=== PATIENT | female | born 1945 | race Hispanic/Latino ===

== ENCOUNTER 2016-10-25 07:59 | Day surgery (SDC) | payer MEDICARE ==
[2016-10-22 13:53] VITALS: BMI 28.7
[2016-10-25 08:30] LABS: ADD MANUAL DIFF? NO
[2016-10-25 08:33] LABS: BASO # 0.11 K/mm3 (0.0-2.0); BASO % 2.1 % (0.0-3.0); EOS # 0.2 (0.0-0.7); EOS % 3.1 % (1.5-5.0); GRAN # 2.95 (1.4-6.5); GRAN % 57.2 % (50.0-68.0); HEMATOCRIT 41.2 % (36.0-48.0); LYMPH # 1.4 (1.2-3.4); LYMPH % 26.7 % (22.0-35.0); MEAN CORPUSCULAR HEMOGLOBIN 28.4 pg (25.0-35.0); MEAN PLATELET VOLUME 9.6 fl (7.0-11.0); MONO # 0.6 (0.1-0.6); MONO % 10.9 % (1.0-6.0); PLATELET COUNT 253 10^3/uL (120.0-450.0); RED CELL DISTRIBUTION WIDTH 13.5 % (11.5-14.5); WHITE BLOOD COUNT 5.2 10^3/ul (4.5-11.0)
[2016-10-25 08:43] LABS: INR 0.96 (0.93-1.08); PARTIAL THROMBOPLASTIN TIME 22.5 Seconds (23.7-30.8)
[2016-10-25 08:50] LABS: BLOOD UREA NITROGEN 12 mg/dL (7-21); CALCIUM 8.8 mg/dL (8.4-10.5); CARBON DIOXIDE 26 mmol/L (21-33); CHLORIDE 100 mmol/L (98-107); GFR AFRICAN-AMERICAN > 60; GLUCOSE,RANDOM 89 mg/dL (70-110); POTASSIUM 3.8 mmol/L (3.6-5.0); SODIUM 133 mmol/L (132-148)
--- NOTE | 2016-10-25 10:01 | CP.SDSHP ---
Same Day Surgery H & P - History Proposed Procedure: Carotid angiogram Pre-Op Diagnosis: Carotid stenosis - Previous Medical/Surgical History Pulmonary: Emphysema/COPD Neuro: TIA/CVA (had syncope) Misc: Anemia, Other (history of L subdural hematoma,hyperlipidemia,Gerd,Lumbar disc fracture x 2,history of cervical and fallopian tube cancer) Pain: 0. No Pain Comments: Ultrasound Doppler study of carotids showed greater than 50% ,but less than 70% diameter narrowing on both sides. Previous Surgical History: Evacuation of subdural hematoma. L knee replacement. Hysterectomy. BSO. Bilateral cateract. Tonsillectomy and adenoidectomy - Allergies Allergies: Allergies codeine Allergy (Verified 10/22/16 14:02) HEADACHE - Physical Exam General Appearance: Well nourished female Vital Signs: Vital Signs 10/25/16 08:30 Temperature 97.4 F L Pulse Rate 76 Respiratory 18 Rate Blood Pressure 122/74 O2 Sat by Pulse 100 Oximetry Mental Status: Alert & Oriented x3 Neuro: Other (Concavity in L frontal area of scalp secondary to surgery for subdural hematoma.) Heart: WNL Lungs: WNL GI: WNL - {Optional Preform as Required} Abdomen: WNL Other Pertinent Findings: No carotid bruit or thrill - Impression Impression: Carotid stenosis Short Stay Discharge - Short Stay Discharge Admitting Diagnosis/Reason for Visit: G45.1 /I65.23 Disposition: HOME/ ROUTINE
[2016-10-25] MEDS ORDERED: Lidocaine 2% Inj (20ml) ONE (10:55)
[2016-10-25] MEDS ORDERED: Iodixanol 320 MG/ML 100 ML BOTTLE IV ONE (10:56)
[2016-10-25] MEDS ORDERED: Midazolam 2 MG/2 ML VIAL ONE ×2 (10:56→11:36)
[2016-10-25] MEDS ORDERED: Iodixanol 320 MG/ML 200 ML BOTTLE IV ONE (10:56)
[2016-10-25] MEDS ORDERED: Oxycodone/Acetaminophen 5/325 mg Tab PO PRN (13:06)
[2016-10-25] MEDS ORDERED: Sodium Chloride 0.45% 1,000 ML IV SCH (13:15)
[2016-10-25 13:41] VITALS: TEMP 97.8
[2016-10-25 14:37] VITALS: RESP 20
[2016-10-25 14:52] VITALS: BP 135/71; PULSE 87; O2SAT 99
--- NOTE | 2016-10-25 16:16 | VASCULAR ---
PROCEDURE: 1. Arch arteriogram. 2. Selective bilateral carotid arteriograms. 3. Selective right vertebral arteriogram HISTORY: Multiple TIAs. Possible ICA stenosis on MRA. PHYSICIAN(S): Arnav Barksdale MD. TECHNIQUE: The relative risks and indications of the procedure were explained to the patient and her son and consent obtained. The patient was placed supine on the arteriogram table and the right groin prepped and draped in usual sterile fashion. Conscious sedation monitoring were provided throughout the procedure by a nurse. Via a right common femoral artery approach, a 5 Icelandic sheath was placed. Through the sheath and over a guidewire 5 Icelandic flush catheter was placed in the ascending aorta and an EQUATORIAL GUINEAN DSA arch arteriogram performed. The catheter was exchanged for a 5 Icelandic Keo A1 catheter placed in the mid right common carotid artery. A DSA a right carotid arteriogram consisting of two views of the bifurcation and 2 intracranial views was performed. Next the catheter was placed selectively in the proximal right vertebral artery. A DSA a right vertebral arteriogram consisting of two views of the cervical segment two views the posterior fossa performed. Finely catheter was placed in the mid left common carotid artery. A DSA left carotid arteriogram consisting of two views of the bifurcation into intracranial views was performed. The sheath was removed hemostasis obtained with a Perclose device. The patient tolerated the procedure well. FINDINGS: The arch arteriogram demonstrates the 3 great vessels to be widely patent without a radiographically significant stenosis. The vertebral arteries are patent with antegrade flow. The right vertebral artery is dominant. The right carotid bifurcation is widely patent. No significant disease or stenosis is seen. The right internal carotid artery is well visualized and widely patent. No stenosis is seen in the petrous segment of the right internal carotid artery. The right M1 and A1 segments are patent. There is no significant intracranial disease are aneurysm. A large right PCOM artery is present. The left carotid bifurcation is widely patent. No significant occlusive disease is seen. The peak for segment of left internal carotid artery is patent. The cavernous segment is patent. The left external carotid artery is widely patent. The left M1 and A1 segments are patent and normal. There is no evidence of aneurysm. Subtle hardware from previous subdural surgery is noted on the left. The right vertebral artery is dominant widely patent. The origin well seen and normal. The cervical segment of the right vertebral artery is normal. The basilar artery and posterior circulation is normal. IMPRESSION: 1. Widely patent carotid bifurcations bilaterally. No evidence of significant extra or intracranial internal carotid artery disease. Specifically, the P3 segments of the internal carotid arteries are widely patent bilaterally. 2. Dominant widely patent right vertebral artery. The posterior circulation is normal.
== END 2016-10-25 15:45 | disposition home or self-care (01) ==
LOC: SDSVAS 07:59
PROVIDERS: ATTEND Radiology Vascular & Interventional Radiology
DX: G45.9 Transient cerebral ischemic attack, unspecified (principal); J44.9 Chronic obstructive pulmonary disease, unspecified; K21.9 Gastro-esophageal reflux disease without esophagitis; E78.5 Hyperlipidemia, unspecified; D64.9 Anemia, unspecified; Z85.41 Personal history of malignant neoplasm of cervix uteri; Z96.652 Presence of left artificial knee joint
CPT/HCPCS: 36223; 36226; 36415; 80048; 85025; 85610; 85730; 99152; 99153; C1760 ×2; C1769 ×3; C1887 ×2; C1894; J1644; J2250; J2405; J3010; J7030; Q9967

== ENCOUNTER 2016-10-27 09:38 | Inpatient (IN) | payer MEDICARE ==
[2016-10-27 09:40] VITALS: BMI 31.5
--- NOTE | 2016-10-27 09:58 | ED PDOC ---
Arrival/HPI - General Chief Complaint: Weakness/Neurological Deficit Time Seen by Provider: 10/27/16 09:39 Historian: Patient EM Caveat: Acuity of Condition - History of Present Illness Narrative History of Present Illness (Text): 10/27/16 09:46 Henny Agrawal is a 71 year old female whose past medical history includes Previous Stroke and Subdural Hematoma Evacuation, who presents to the Emergency department with aphasia. Son at bedside states patient called him this morning and was acting confusing. The son is unsure of symptom onset but reports patient was at her baseline yesterday. Patient at bedside with aphagia and only responds to questions with 'I don't know'. Patient is unable to verbalized complaints of pain. Patient has been evaluated in the past for similar symptoms , with negative MRI. HPI & [facility] limited. PMD: Yenny Aguillon MD Time/Duration: 4-6 hours Symptom Onset: Other (Unknown) Symptom Course: Unchanged Activities at Onset: Light Context: Home Past Medical History - Provider Review Nursing Documentation Reviewed: Yes - Infectious Disease Hx of Infectious Diseases: None - Cardiac Hx Pacemaker: No - Pulmonary Hx Respiratory Disorders: Yes Hx Chronic Obstructive Pulmonary Disease (COPD): Yes - Neurological Hx Neurological Disorder: No - HEENT Hx HEENT Disorder: Yes (WEARS RX READING GLASSES) Hx Cataracts: Yes (BILATERAL CATARACT SURGERY) - Renal Hx Renal Disorder: No - Endocrine/Metabolic Hx Endocrine Disorders: No - Hematological/Oncological Hx Blood Transfusions: No - Integumentary Hx Dermatological Disorder: No - Musculoskeletal/Rheumatological Hx Musculoskeletal Disorders: Yes (LEFT KNEE TORN MENISCUS) - Gastrointestinal Hx Gastrointestinal Disorders: Yes Hx Gastroesophageal Reflux: Yes - Genitourinary/Gynecological Hx Genitourinary Disorders: No - Psychiatric Hx Psychophysiologic Disorder: No Hx Emotional Abuse: No Hx Physical Abuse: No Hx Substance Use: No - Surgical History Hx Hysterectomy: Yes Other/Comment: TONSILLECTOMY,D&C,BILATERAL CATARACT SURGERY,L KNEE TORN MENISCUS - Anesthesia Hx Anesthesia Reactions: No Hx Malignant Hyperthermia: No - Suicidal Assessment Feels Threatened In Home Enviroment: No Family/Social History - Physician Review Nursing Documentation Reviewed: Yes Family/Social History: No Known Family HX Smoking Status: Unknown If Ever Smoked Hx Alcohol Use: No Hx Substance Use: No Allergies/Home Meds Allergies/Adverse Reactions: Allergies codeine Allergy (Verified 10/27/16 09:41) HEADACHE Home Medications: Home Meds Medication Instructions Recorded Confirmed Albuterol Sulfate [Proair Hfa] 0.09 mg IH DAILY PRN 10/22/16 10/27/16 Aspirin 325 mg PO DAILY 10/22/16 10/27/16 Atorvastatin [Lipitor] 40 mg PO DAILY 10/22/16 10/27/16 Cholecalciferol (Vitamin D3) 50,000 unit PO Q2W 10/22/16 10/27/16 [Vitamin D3] Esomeprazole Magnesium [Nexium] 20 mg PO DAILY 10/22/16 10/27/16 Folic Acid 1 mg PO DAILY 10/22/16 10/27/16 Polyethylene Glycol 3350 [Miralax] 17 gm PO DAILY PRN 10/22/16 10/27/16 Primidone [Mysoline] 25 mg PO BID 10/22/16 10/27/16 Tiotropium [Spiriva] 18 mcg IH DAILY 10/22/16 10/27/16 Ascorbate Calcium [Vitamin C] 2 tab PO DAILY 10/25/16 10/27/16 Budesonide/Formoterol Fumarate 2 puff IH BID 10/25/16 10/27/16 [Symbicort 160-4.5 Mcg Inhaler] Multivitamin/Iron/Folic Acid 1 tab PO DAILY 10/25/16 10/27/16 [Centrum Complete Multivit Tab] Review of Systems - Review of Systems Systems not reviewed;Unavailable: Acuity of Condition Physical Exam Vital Signs Reviewed: Yes Vital Signs Temp Pulse Resp BP Pulse Ox 10/27/16 13:13 85 142/92 H 10/27/16 13:07 78 20 145/92 H 99 10/27/16 13:00 80 20 145/92 H 98 10/27/16 11:00 98 F 76 20 146/74 95 10/27/16 09:49 98.4 F 83 18 145/77 100 Temperature: Afebrile Blood Pressure: Normal Pulse: Regular Respiratory Rate: Normal Appearance: Positive for: Well-Appearing, Non-Toxic, Comfortable Pain Distress: None Mental Status: Positive for: Alert and Oriented X 3 Finger Stick Blood Glucose: 105 - Systems Exam Head: Present: Atraumatic, Normocephalic Pupils: Present: PERRL Extroacular Muscles: Present: EOMI Conjunctiva: Present: Normal Mouth: Present: Moist Mucous Membranes Neck: Present: Normal Range of Motion Respiratory/Chest: Present: Clear to Auscultation, Good Air Exchange. No: Respiratory Distress, Accessory Muscle Use Cardiovascular: Present: Regular Rate and Rhythm, Normal S1, S2. No: Murmurs Abdomen: Present: Normal Bowel Sounds. No: Tenderness, Distention, Peritoneal Signs Back: Present: Normal Inspection Upper Extremity: Present: Normal Inspection. No: Cyanosis, Edema Lower Extremity: Present: Normal Inspection. No: Edema Neurological: Present: GCS=15, CN II-XII Intact, Motor Func Grossly Intact, Normal Sensory Function, Normal Cerebellar Funct, Other (expressive aphagia, responds "i don't know" to all questions, appears frustrated, ). No: Memory Normal Skin: Present: Warm, Dry, Normal Color. No: Rashes Psychiatric: Present: Alert, Oriented x 3, Normal Insight, Normal Concentration Medical Decision Making ED Course and Treatment: 10/27/16 09:46 Impression: 71 year old female presenting with aphagia, unknown symptom onset. Plan: -- Head CT -- Chest X-ray -- EKG -- Labs, Cardiac enzymes -- Type and Screen -- Reassess and disposition Prior Visits: Notes and results from previous visits were reviewed. Patient was last seen in the Emergency department on 02/25/15 for aphasia related symtpoms. Progress Notes: 10/27/16 09:49 EKG: Ordered, reviewed, and independently interpreted the EKG. Rate : 86 BPM Rhythm : NSR Interpretation : No ST-segment elevations or depressions, no T-wave inversions, normal intervals. 10/27/16 09:[address] Green who states due to uncertain symptom onset patient is not a tPA candidate at this time. 10/27/16 10:29 Procedure: CT HEAD WITHOUT CONTRAST. Dictator: King Covington MD Impression: SMALL RIGHT FRONTAL SUBDURAL HEMATOMA. 10/27/16 10:[address] Kumar, states no surgical intervention needed. Case also discussed with Dr. Hill who accepts patient into the ICU. Patient has been updated. 10/27/16 11:[address] Aguillon, who accepts patient into her service. - Lab Interpretations Lab Results: 10/27/16 10:19 10/27/16 10:19 Lab Results 10/27/16 10:19: WBC 6.7 D, RBC 5.03, Hgb 14.3, Hct 42.7, MCV 84.9, MCH 28.4, MCHC 33.5, RDW 13.2, Plt Count 246, MPV 9.6, Gran % 67.2, Lymph % (Auto) 19.5 L , [place] % (Auto) 10.8 H, Eos % (Auto) 1.5, Baso % (Auto) 1.0, Gran # 4.49, Lymph # 1.3, [place] # 0.7 H, Eos # 0.1, Baso # 0.07, PT 10.6, INR 0.98, APTT 24.3, Sodium 136, Potassium 4.4, Chloride 101, Carbon Dioxide 26, Anion Gap 13, BUN 9 , Creatinine 0.8, Est GFR ( Amer) > 60, Est GFR (Non-Af Amer) > 60, Random Glucose 100, Calcium 9.7, Total Bilirubin 0.8, AST 22, ALT 33, Alkaline Phosphatase 79, Lactate Dehydrogenase 475, Total Creatine Kinase 55, Troponin I < 0.01, Total Protein 6.9, Albumin 3.9, Globulin 2.9, Albumin/Globulin Ratio 1.3 , Triglycerides 108, Cholesterol 148, LDL Cholesterol Direct 60, HDL Cholesterol 64 H, Blood Type A POSITIVE, Antibody Screen Negative, BBK History Checked No verified bt I have reviewed the lab results: Yes - RAD Interpretation Narrative RAD Interpretations (Text): 10/27/16 10:29 Procedure: CT HEAD WITHOUT CONTRAST. Dictator: King Covington MD FINDINGS: HEMORRHAGE: SMALL RIGHT FRONTAL SUBDURAL HEMATOMA. BRAIN: No mass effect or edema. No atrophy or chronic microvascular ischemic changes. VENTRICLES: Unremarkable. No hydrocephalus. CALVARIUM: Unremarkable. PARANASAL SINUSES: Unremarkable as visualized. No significant inflammatory changes. MASTOID AIR CELLS: Unremarkable as visualized. No inflammatory changes. OTHER FINDINGS: None. Impression: SMALL RIGHT FRONTAL SUBDURAL HEMATOMA. Radiology Orders: 10/27/16 09:50 HEAD W/O (CODE STROKE) [CT] Stat CHEST PORTABLE [RAD] Stat Icu Nurse: Radiologist - Medication Orders Current Medication Orders: Atorvastatin Calcium (Lipitor) 40 mg PO DAILY EDDIE Last Admin: 10/27/16 11:47 Dose: Not Given Non-Admin Reason: NPO Dextrose/Sodium Chloride (Dextrose 5%/0.45% Ns 1000 Ml) 1,000 mls @ 75 mls/hr IV .[id number] EDDIE Last Admin: 10/27/16 11:23 Dose: 75 MLS/HR eMAR Start Stop Document 10/27/16 11:23 GMI (Rec: 10/27/16 11:23 [place] [id number]) Intravenous Solution Start Date 10/27/16 Start Time 11:23 Pantoprazole Sodium (Protonix Inj) 40 mg IVP DAILY [facility] Last Admin: 10/27/16 11:49 Dose: 40 MG IVP Administration Document 10/27/16 11:49 GMI (Rec: 10/27/16 11:49 [place] [id number]) Charges for Administration # of IVP Administrations 1 Discontinued Medications Ondansetron HCl (Zofran Inj) 4 mg IVP STAT STA Stop: 10/27/16 10:50 Last Admin: 10/27/16 10:53 Dose: 4 MG IVP Administration Document 10/27/16 10:53 GMI (Rec: 10/27/16 10:56 [place] [id number]) Charges for Administration # of IVP Administrations 1 Ondansetron HCl (Zofran Inj) Confirm Administered Dose 4 mg .ROUTE .STK-MED ONE Stop: 10/27/16 10:55 Last Admin: 10/27/16 10:57 Dose: Pneumococcal Polyvalent Vaccine (Pneumovax 23 Vaccine) 0.5 ml IM .ONCE ONE Stop: 10/27/16 14:28 NIHSS Scale ([place]) Time Performed: 10:04 - How Severe is the Stoke Baseline Level of Consciousness: 0=Alert LOC to Questions: 2=Neither correct LOC to commands: 2=Neither correct Best Gaze: 0=Normal Visual: 0=No visual loss Facial: 0=Normal Motor Arm - Left: 0=No drift Motor Arm - Right: 0=No drift Motor Leg - Left: 0=No drift Motor Leg - Right: 0=No drift Limb Ataxia: 0=Absent Sensory: 0=Normal Best Language: 1=Mild to moderate aphasia Dysarthia: 0=Normal articulation rTPA Inclusion/Exclusion - Refusal of Treatment Patient Refused Treatment: No - Inclusion Criteria for Altepase Patient is 18 years or Older: Yes The Clinical Diagnosis of Ischemic Stroke That is Causing a Potentially Disabling Neurological Deficit: Yes Time of Onset is Well Established to be Less Than 270 Minute Before Treatment Would Begin: No Risk/Benefit Discussed With Patient/Family Member Present: Yes - Scribe Statement The provider has reviewed the documentation as recorded by the Pam Vargas Provider Attestation: All medical record entries made by the Pam were at my direction and personally dictated by me. I have reviewed the chart and agree that the record accurately reflects my personal performance of the history, physical exam, medical decision making, and the department course for this patient. I have also personally directed, reviewed, and agree with the discharge instructions and disposition. Disposition/Present on Arrival - Present on Arrival Any Indicators Present on Arrival: No History of DVT/PE: No History of Uncontrolled Diabetes: No Urinary Catheter: No History of Decub. Ulcer: No History Surgical Site Infection Following: None - Disposition Have Diagnosis and Disposition been Completed?: Yes Diagnosis: Subdural hematoma Disposition: HOSPITALIZED Disposition Time: 09:00 Condition: CRITICAL
[2016-10-27 10:20] LABS: ADD MANUAL DIFF? NO
[2016-10-27 10:23] LABS: BASO # 0.07 K/mm3 (0.0-2.0); EOS # 0.1 (0.0-0.7); EOS % 1.5 % (1.5-5.0); GRAN # 4.49 (1.4-6.5); GRAN % 67.2 % (50.0-68.0); HEMATOCRIT 42.7 % (36.0-48.0); LYMPH # 1.3 (1.2-3.4); LYMPH % 19.5 % (22.0-35.0); MEAN CELL VOLUME 84.9 fL (80.0-105.0); MEAN CORPUSCULAR HEMOGLOBIN 28.4 pg (25.0-35.0); MEAN CORPUSCULAR HGB CONC 33.5 g/dl (31.0-37.0); MEAN PLATELET VOLUME 9.6 fl (7.0-11.0); MONO # 0.7 (0.1-0.6); MONO % 10.8 % (1.0-6.0); PLATELET COUNT 246 10^3/uL (120.0-450.0); RED CELL DISTRIBUTION WIDTH 13.2 % (11.5-14.5); WHITE BLOOD COUNT 6.7 10^3/ul (4.5-11.0)
--- NOTE | 2016-10-27 10:30 | CT ---
PROCEDURE: CT HEAD WITHOUT CONTRAST. HISTORY: Code Stroke COMPARISON: None available. TECHNIQUE: Axial computed tomography images were obtained through the head/brain without intravenous contrast. Radiation dose: Total exam DLP = 789 mGy-cm. This CT exam was performed using one or more of the following dose reduction techniques: Automated exposure control, adjustment of the mA and/or kV according to patient size, and/or use of iterative reconstruction technique. FINDINGS: HEMORRHAGE: SMALL RIGHT FRONTAL SUBDURAL HEMATOMA. BRAIN: No mass effect or edema. No atrophy or chronic microvascular ischemic changes. VENTRICLES: Unremarkable. No hydrocephalus. CALVARIUM: Unremarkable. PARANASAL SINUSES: Unremarkable as visualized. No significant inflammatory changes. MASTOID AIR CELLS: Unremarkable as visualized. No inflammatory changes. OTHER FINDINGS: None. IMPRESSION: SMALL RIGHT FRONTAL SUBDURAL HEMATOMA.
[2016-10-27 10:33] LABS: ALB/GLOB RATIO 1.3 (1.1-1.8); ALKALINE PHOSPHATASE 79 U/L (38-133); ALT/SGPT 33 U/L (7-56); AST/SGOT 22 U/L (15-39); BILIRUBIN,TOTAL 0.8 mg/dL (0.2-1.3); BLOOD UREA NITROGEN 9 mg/dL (7-21); CALCIUM 9.7 mg/dL (8.4-10.5); CARBON DIOXIDE 26 mmol/L (21-33); CHLORIDE 101 mmol/L (98-107); CHOLESTEROL 148 mg/dL (130-200); GFR AFRICAN-AMERICAN > 60; GLUCOSE,RANDOM 100 mg/dL (70-110); POTASSIUM 4.4 mmol/L (3.6-5.0); SODIUM 136 mmol/L (132-148); TOTAL PROTEIN 6.9 g/dL (5.8-8.3)
[2016-10-27 10:44] LABS: TROPONIN I < 0.01 ng/mL
[2016-10-27 10:49] LABS: INR 0.98 (0.93-1.08); PARTIAL THROMBOPLASTIN TIME 24.3 Seconds (23.7-30.8)
[2016-10-27] MEDS: Dextrose 5%/0.45% NS 1,000 ML IV SCH (11:23)
--- NOTE | 2016-10-27 11:49 | HP ---
HISTORY OF PRESENT ILLNESS: The patient is a 71-year-old who was brought to Emergency Room. The cash booker is not able to give much history. According to son, she called him this morning and he found he r confused, so he came over. The patient's son does not know how long she was feeling like that. Th e last time he spoke to her was yesterday evening and she was in the baseline of her health. The cash booker does not look in any distress. She stares at you and answers "I don't know anything." Her past medical history is significant for hypertension. She was recently admitted end of last year in [facility] [place]. At that point, she had intracranial hemorrhage. She was treated conservativ neena with close watch and sent to [facility] for rehab where she regained her strength and was back to normal. She did not have any significant deficit at that point. Son does not report that she has a ny recent fever, chills, nausea, vomiting, hemoptysis, hematemesis. PAST MEDICAL HISTORY: Significant for: 1. Hypertension. 2. Hyperlipidemia. 3. Recent intracranial hemorrhage. 4. She has a history uterine CA and she had total abdominal hysterectomy with bilateral salpingo-oop horectomy in remote past. PAST SURGICAL HISTORY: Significant for: 1. Bilateral cataract extraction. 2. Tonsillectomy 3. Adenoidectomy. ALLERGIES: SHE IS ALLERGIC TO CODEINE. THAT GIVES HER HEADACHE. MEDICATIONS AT HOME: 1. She is on Spiriva 18 mcg daily. 2. Mysoline 25 twice a day. 3. Multivitamin. 4. Folic acid 1 mg daily. 5. Nexium 20 mg daily. 6. Symbicort. 7. Atorvastatin 40 mg daily. 8. Aspirin 325 daily. 9. Vitamin C. 10. Albuterol. SOCIAL HISTORY: She lives by herself. Her son lives in the same town. REVIEW OF SYSTEMS: Significant for aphasia. PHYSICAL EXAMINATION: GENERAL: She is awake and alert, answers questions by saying "I don't know." VITAL SIGNS: She is afebrile, pulse 83, respirations 18, blood pressure 145/77. LUNGS: Bilateral fair airflow, no rhonchi or crackle. HEART: S1, S2 audible. ABDOMEN: Soft, nontender, no rebound, no guarding. NEUROLOGIC: The patient is awake and alert, able to move all extremities. Sensory is unable to do b ecause of her non-communication. The patient recently had a CT angiogram for carotid on 10/25 and carotids were found to be normal. Wi malorie patent carotid bifurcation, no evidence of extra or intracranial carotid artery disease. Domina nt patent right vertebral artery. She also had PET scan done in 06/2016. At that point, we found a small nodule in the right lower mediastinum adjacent to cardiophrenic angle representing possibly new metastasis. Today, CT scan shows small right frontal subdural hematoma. ASSESSMENT: 1. Altered mental status. 2. Small right frontal subdural hematoma. 3. Hypertension. 4. Hyperlipidemia. 5. History of uterine cancer. PLAN: I will discuss with neurology if we need neurosurgical intervention. We will get swallowing e jermaine. We will avoid anticoagulation for now. DVT prophylaxis will be started. We will follow up pat ient in a.m. Yenny Aguillon MD cc: [id number] TT: 10/27/2016 11:48:29 tn
--- NOTE | 2016-10-27 13:23 | CON ---
DATE: 10/27/2016 HISTORY OF PRESENT ILLNESS: This is a 71-year-old lady with history of prior stroke and subdural hematoma evacuation who presented to Emergency Room with difficulty speaking. She appears to be able to understand everything; however, aphasia appears to be expressive. According to son who is at bedside, the patient appeared to be confused since this morning; however, the precise timing of symptom onset cannot be identified. No nausea, no vomiting, no diarrhea, no constipation, no chest pain, no shortness of breath. PAST MEDICAL HISTORY: Stroke, subdural hematoma, hypercholesterolemia, COPD. SOCIAL HISTORY: No alcohol or illicit drug abuse. No current tobacco smoking. ALLERGIES: CODEINE. FAMILY HISTORY: Noncontributory. MEDICATIONS AT HOME: Albuterol, aspirin, Lipitor, vitamin D3, Nexium, folic acid, MiraLax, primidone, tiotropium, vitamin C, Symbicort, multivitamins. REVIEW OF SYSTEMS: Revealed 12 organ system other than mentioned in history of present illness is negative. PHYSICAL EXAMINATION: VITAL SIGNS: Temperature 98, blood pressure 146/74, respiratory rate 20, oxygen saturation 95% on room air. HEAD AND NECK: Atraumatic. LUNGS: Clear to auscultation bilaterally. HEART: Regular rate and rhythm. S1, S2 normal. ABDOMEN: Soft, nontender, nondistended. MUSCULOSKELETAL: No C/C/E. NEUROLOGIC: The patient moves all extremities spontaneously. There is symmetric 5/5 strength in both upper and lower extremities. Exam of cranial nerves is limited. SKIN: Moist. PSYCHOLOGIC: The patient is able to follow commands, alert and doesnt appear to be confused or lethargic. LABORATORY DATA: WBC 6.7, hemoglobin 14.3, platelet count 246. Sodium 136, potassium 4.4, chloride 101, carbon dioxide 26, BUN 9, creatinine 0.8. AST 22, ALT 33, glucose 100, troponin less than 0.01, albumin 3.9, HDL cholesterol 64, LDL cholesterol 60. INR 0.98. CAT scan of the head, small right frontal subdural hematoma. EKG showed no specific ischemic changes, normal sinus rhythm at 86. Chest x-ray showed no active pulmonary disease. ASSESSMENT AND PLAN: This is a 71-year-old lady who presented with acute or subacute onset of expressive aphasia in the setting of small acute right subdural hematoma. I doubt that aphasia is solely SDH doing in the absence of altered mental status on exam nor other neuro deficit and no radiograhic signs of intracranial hypertension. Possibility of concomittant ischemic stroke can not be completely ruled out and decision about further work up in this direction will be deferred to neuro service. However in any case patient would not be a candidate for tPA as well as AP tx. Neurology evaluation is pending. As per conversation with Dr. Kumar--no need for emergent neurosurgical intervention. We will continue to target euvolemia, euglycemia, normothermia and oxygen saturation more than 90%. CTH in am. I would hold on platelet transfusion as possibility of coincidental ischemic stroke cannot be ruled out. N.p.o., speech and swallow evaluation, echocardiogram, physical therapy and a carotid Doppler. ccm time 40 min Mike Hill MD cc: [id number] TT: 10/27/2016 13:23:25 Confirmation # [id number] Dictation # [id number] antonio BRONSON
[2016-10-27] MEDS ORDERED: Pneumococcal 23-Valent Vaccine IM ONE (14:27)
--- NOTE | 2016-10-27 15:15 | CON ---
DATE: 10/27/2016 HISTORY OF PRESENT ILLNESS: This is a 71-year-old female with a past medical history of stroke, COPD , high cholesterol and subdural hematoma, came to the Emergency Room with difficulty in speaking, livan ears to understand, but unable to express. Her son says the patient appeared confused and denies any nausea or vomiting, no dizziness, no shortness of breath. PAST MEDICAL HISTORY: Subdural hematoma, high cholesterol, and COPD. SOCIAL HISTORY: Does not smoke, does not drink. ALLERGIES: CODEINE. HOME MEDICATIONS: Aspirin, Lipitor, Nexium, primidone. REVIEW OF SYSTEMS: A 10-point review of system was negative except being aphasia. PHYSICAL EXAMINATION: HEENT: Normocephalic, atraumatic. NECK: Supple. NEUROLOGIC: Awake, alert, oriented appears to self only. Cranial nerves II-XII were tested. Pupils reactive. EOM intact. Visual lopez full. No facial asymmetry. Tongue midline. Motor: Moves al l the extremities spontaneously. Deep tendon reflexes 1+. Both plantars are downgoing. Sensory livan ears intact. Cerebellar, gait deferred. IMPRESSION: Possibly left hemispheric infarct in the middle cerebral artery distribution. CAT scan of the head was done. CAT scan of the head showed very small subdural hematoma and neurosurgery was consulted. We will follow up. Vijay Green MD cc: [id number] TT: 10/27/2016 15:15:31 Confirmation # [id number] Dictation # [id number] tn
--- NOTE | 2016-10-27 20:00 | CARD ---
APPROVED REPORT EKG Measurement Heart [id number] <Conclusion> Normal sinus rhythm Nonspecific ST abnormality Abnormal ECG
[2016-10-27] MEDS ORDERED: Morphine 2 mg/ml ISec IVP STA (20:56)
[2016-10-28] MEDS: Dextrose 5%/0.45% NS 1,000 ML IV SCH (02:12)
[2016-10-28 05:45] LABS: ADD MANUAL DIFF? NO
[2016-10-28 05:55] LABS: BASO # 0.04 K/mm3 (0.0-2.0); BASO % 0.6 % (0.0-3.0); EOS # 0.1 (0.0-0.7); EOS % 1.6 % (1.5-5.0); GRAN # 3.92 (1.4-6.5); GRAN % 61.2 % (50.0-68.0); LYMPH # 1.6 (1.2-3.4); LYMPH % 24.6 % (22.0-35.0); MEAN CELL VOLUME 84.7 fL (80.0-105.0); MEAN CORPUSCULAR HEMOGLOBIN 28.4 pg (25.0-35.0); MEAN CORPUSCULAR HGB CONC 33.5 g/dl (31.0-37.0); MEAN PLATELET VOLUME 9.8 fl (7.0-11.0); MONO # 0.8 (0.1-0.6); PLATELET COUNT 249 10^3/uL (120.0-450.0); RED CELL DISTRIBUTION WIDTH 13.1 % (11.5-14.5); WHITE BLOOD COUNT 6.4 10^3/ul (4.5-11.0)
[2016-10-28 06:43] LABS: BLOOD UREA NITROGEN 7 mg/dL (7-21); CALCIUM 8.9 mg/dL (8.4-10.5); CARBON DIOXIDE 27 mmol/L (21-33); CHLORIDE 101 mmol/L (95-110); GFR AFRICAN-AMERICAN > 60; GLUCOSE,RANDOM 108 mg/dL (70-110); POTASSIUM 4.4 mmol/L (3.6-5.0); SODIUM 137 mmol/L (132-148)
--- NOTE | 2016-10-28 08:08 | RAD ---
PROCEDURE: CHEST RADIOGRAPH, 1 VIEW HISTORY: code stroke COMPARISON: None available. FINDINGS: LUNGS: Clear. PLEURA: No pneumothorax or pleural fluid seen. CARDIOVASCULAR: Normal. OSSEOUS STRUCTURES: No significant abnormalities. VISUALIZED UPPER ABDOMEN: Normal. OTHER FINDINGS: None. IMPRESSION: No active disease.
--- NOTE | 2016-10-28 08:49 | CT ---
PROCEDURE: CT HEAD WITHOUT CONTRAST. HISTORY: subdural hematoma COMPARISON: 10/27/2016 TECHNIQUE: Axial computed tomography images were obtained through the head/brain without intravenous contrast. Radiation dose: Total exam DLP = 725 mGy-cm. This CT exam was performed using one or more of the following dose reduction techniques: Automated exposure control, adjustment of the mA and/or kV according to patient size, and/or use of iterative reconstruction technique. FINDINGS: HEMORRHAGE: Question slight decrease in size of small right frontal subdural hematoma measuring roughly 3.1 x 0.5 cm. BRAIN: No mass effect or edema. No atrophy or chronic microvascular ischemic changes. VENTRICLES: Unremarkable. No hydrocephalus. CALVARIUM: Old left marko hole.. PARANASAL SINUSES: Unremarkable as visualized. No significant inflammatory changes. MASTOID AIR CELLS: Unremarkable as visualized. No inflammatory changes. OTHER FINDINGS: None. IMPRESSION: Question slight decrease in size of small right frontal subdural hematoma measuring roughly 3.1 x 0.5 cm.
--- NOTE | 2016-10-28 10:34 | CP.CCUPN ---
<NathanGiorgio - Last Filed: 10/28/16 10:30> CCU Subjective - Physician Review Subjective (Free Text): 10/28/16 10:30 Patient seen and examined at bedside in ICU. Today is hospital day 2. Overnight, she complained of headache and there was concern of worsening aphasia , but the overnight physician found no acute worsening or change in neurological status. Her morphine was discontinued in favor of toradol for her headache, and it improved. Today, patient reports generally feeling better. She admits to intermittent headache today, but no other pain. Her word finding is greatly improved, she is able to clearly articulate most words and only occasionally struggle with correctly pronouncing the words she wants to say. Denies new focal weakness, hoarseness, difficultly speaking, vision changes, or chest pain/shortness of breath. CCU Objective - Vital Signs / Intake & Output Vital Signs (Last 4 hours): Vital Signs Temp Pulse Resp BP Pulse Ox 10/28/16 10:24 80 18 120/67 97 10/28/16 10:00 72 37 H 120/67 10/28/16 09:21 77 39 H 129/75 10/28/16 09:00 71 16 135/76 93 L 10/28/16 08:19 100.2 F H 70 18 130/66 94 L 10/28/16 08:15 72 17 10/28/16 08:00 76 33 H 10/28/16 07:00 69 15 130/67 Intake and Output (Last 8hrs): Intake & Output 10/27/16 10/28/16 10/28/16 22:59 06:59 14:59 Intake Total 900 900 Output Total 200 900 Balance 700 0 Intake: IV 900 900 Left Wrist 900 lw 900 Oral 0 0 Output: Urine 200 900 Urine, Voided 200 900 Other: Voiding Method Bedpan Bedpan Bedpan # Bowel Movements 0 0 - Physical Exam Head: Positive for: Atraumatic, Normocephalic. Negative for: Ecchymosis, Abrasion, Laceration Pupils: Positive for: PERRL. Negative for: Sluggish, Non-Reactive, Pinpoint Extroacular Muscles: Positive for: EOMI. Negative for: Gaze Palsy, Entrapment Conjunctiva: Positive for: Normal. Negative for: Injected, Icteric Mouth: Positive for: Moist Mucous Membranes, Normal Tounge, Other (No tongue fasiculations, tongue midline on extrusion). Negative for: Dry Pharnyx: Positive for: Normal, Other (uvula midline, palate raises equally and appropriately bilaterally). Negative for: ERYTHEMA, EXUDATE, Uvular Deviation, Muffled/Hoarse Voice Nose (External): Positive for: Atraumatic. Negative for: Abrasion, Contusion, Laceration Neck: Positive for: Normal Range of Motion, Trachea Midline. Negative for: MIDLINE TENDERNESS, JVD Respiratory/Chest: Positive for: Clear to Auscultation, Good Air Exchange. Negative for: Respiratory Distress, Accessory Muscle Use, Wheezes, Decreased Breath Sounds, Rales, Retracting, Rhonchi, Tachypneic Cardiovascular: Positive for: Regular Rate and Rhythm, Normal S1, S2. Negative for: Murmurs, Irregular Rhythm, Tachycardic, Bradycardic Abdomen: Positive for: Normal Bowel Sounds. Negative for: Tenderness, Distention, Peritoneal Signs, Guarding, Mass/Organomegaly Back: Positive for: Normal Inspection Upper Extremity: Positive for: Normal Inspection, Normal ROM, NORMAL PULSES (+2 radials), Neurovascularly Intact, Other (Lead Loader strength 5/5 bilaterally, flexion/ extention 5/5 bilaterally, no tremors or ataxia noted with movement). Negative for: Cyanosis, Edema, Tenderness, Swelling, Erythema, Deformity Lower Extremity: Positive for: Normal Inspection, NORMAL PULSES (+1 dorsalis pedis bilaterally), Normal ROM, Neurovascularly Intact, Other (+5/5 foot flexion /extention, 5/5 straight leg raising and dropping). Negative for: Edema, CALF TENDERNESS, Cyanosis, Tenderness, Swelling, Erythema, Deformity Neurological: Positive for: GCS=15, CN II-XII Intact, Motor Func Grossly Intact (muscle strength testing as documented in extremities sections), Normal Sensory Function, Normal Cerebellar Funct, Other (some residual expressive aphasia but considerably improved, some word finding/pronouncing difficulties, but able to hold regular conversation and express herself verbally without overt difficulty) . Negative for: Speech Normal, Memory Normal Skin: Positive for: Warm, Dry, Normal Color. Negative for: Rashes Psychiatric: Positive for: Alert, Oriented x 3, Normal Insight, Normal Concentration, Normal Affect, Normal Mood - Medications Active Medications: Active Medications Generic Name Dose Route Start Last Admin Trade Name Freq PRN Reason Stop Dose Admin Atorvastatin Calcium 40 mg 10/27/16 11:15 10/27/16 11:47 Lipitor PO Not Given DAILY EDDIE Dextrose/Sodium Chloride 1,000 mls @ 75 mls/hr 10/27/16 11:15 10/28/16 02:12 Dextrose 5%/0.45% Ns 1000 Ml IV 75 mls/hr .[id number] EDDIE Administration Ketorolac Tromethamine 30 mg 10/27/16 21:19 10/27/16 21:30 Toradol IVP 10/29/16 21:20 30 mg Q6H PRN Administration Pain, severe (8-10) Ondansetron HCl 4 mg 10/27/16 21:21 10/27/16 21:32 Zofran Inj IVP 4 mg Q4H PRN Administration Nausea/Vomiting Pantoprazole Sodium 40 mg 10/27/16 11:15 10/27/16 11:49 Protonix Inj IVP 40 mg DAILY EDDIE Administration - Patient Studies Lab Studies: Lab Studies 10/28/16 10/27/16 Range/Units 05:00 11:50 WBC 6.4 (4.5-11.0) 10^3/ul RBC 4.72 (3.5-6.1) 10^6/uL Hgb 13.4 (12.0-16.0) gm/dL Hct 40.0 (36.0-48.0) % MCV 84.7 (80.0-105.0) fL MCH 28.4 (25.0-35.0) pg MCHC 33.5 (31.0-37.0) g/dl RDW 13.1 (11.5-14.5) % Plt Count 249 (120.0-450.0) 10^3/uL MPV 9.8 (7.0-11.0) fl Gran % 61.2 (50.0-68.0) % Lymph % (Auto) 24.6 (22.0-35.0) % Tripp % (Auto) 12.0 H (1.0-6.0) % Eos % (Auto) 1.6 (1.5-5.0) % Baso % (Auto) 0.6 (0.0-3.0) % Gran # 3.92 (1.4-6.5) Lymph # 1.6 (1.2-3.4) Tripp # 0.8 H (0.1-0.6) Eos # 0.1 (0.0-0.7) Baso # 0.04 (0.0-2.0) K/mm3 Sodium 137 (132-148) mmol/L Potassium 4.4 (3.6-5.0) mmol/L Chloride 101 (95-110) mmol/L Carbon Dioxide 27 (21-33) mmol/L Anion Gap 13 (10-20) BUN 7 (7-21) mg/dL Creatinine 0.9 (0.5-1.4) mg/dL Est GFR ( Amer) > 60 Est GFR (Non-Af Amer) > 60 Random Glucose 108 (70-110) mg/dL Calcium 8.9 (8.4-10.5) mg/dL Blood Type Confirm A POSITIVE Laboratory Results - last 24 hr 10/27/16 10/28/16 11:50 05:00 WBC 6.4 RBC 4.72 Hgb 13.4 Hct 40.0 MCV 84.7 MCH 28.4 MCHC 33.5 RDW 13.1 Plt Count 249 MPV 9.8 Gran % 61.2 Lymph % (Auto) 24.6 Tripp % (Auto) 12.0 H Eos % (Auto) 1.6 Baso % (Auto) 0.6 Gran # 3.92 Lymph # 1.6 Tripp # 0.8 H Eos # 0.1 Baso # 0.04 Sodium 137 Potassium 4.4 Chloride 101 Carbon Dioxide 27 Anion Gap 13 BUN 7 Creatinine 0.9 Est GFR ( Amer) > 60 Est GFR (Non-Af Amer) > 60 Random Glucose 108 Calcium 8.9 Blood Type Confirm A POSITIVE Fingerstick Blood Sugar Results: 107 Review of Systems - Constitutional Constitutional: absent: Fever, Chills - EENT Eyes: absent: Blurred Vision, Change in Vision, Loss of Vision Ears: absent: Dizziness Nose/Mouth/Throat: Other (Difficulty speaking, improved over yesterday). absent : Sore Throat, Neck Pain - Cardiovascular Cardiovascular: absent: Chest Pain, Dyspnea, Pain Radiating to Arm/Neck/Jaw, Lightheadedness, Syncope - Respiratory Respiratory: absent: Cough, Dyspnea, Hemoptysis, Wheezing - Gastrointestinal Gastrointestinal: absent: Abdominal Pain, Constipation, Diarrhea, Nausea, Vomiting - Genitourinary Genitourinary: absent: Difficulty Urinating, Dysuria, Flank Pain, Hematuria - Musculoskeletal Musculoskeletal: absent: Deformity, Muscle Weakness, Numbness, Radiating Pain into Limb - Integumentary Integumentary: absent: Pruritus, Rash - Neurological Neurological: Other (AMS, expressive aphasia (improved today)). absent: Loss of Vision, Syncope, Weakness, Other Visual Disturbances - Psychiatric Psychiatric: absent: Anxiety - Endocrine Endocrine: absent: Fatigue, Palpitations Critical Care Progress Note - Nutrition Nutrition: Nutrition Category Date Time Status Modified [Dysphagia/Modified Consistency Diet] [DIET] Diets 10/28/16 Lunch Ordered NPO Diet [DIET] Diets 10/27/16 Lunch Ordered Assessment/Plan - Assessment and Plan (Free Text) Assessment: This is a 71 yo F with PMH of prior stroke, prior subdural hematoma, COPD, and hypercholesterolemia who presented with AMS/expressive aphasia and was found to have a new Subdural hematoma. She was admitted to the ICU for observation pending reassessment of the SDH, and is now stable for transfer. Plan: Neuro: -awake and alert, oriented x4 (self, location, year, president) -some word finding/pronouncing difficulties, but improved over yesterday; able to be conversant without overt difficulty, able to answer questions appropriately -no new or evolving focal deficits noted on exam, Muscle strength +5/5 on all testing -Per Speech/Swallow: started on pureed food + thin liquid trial given moderate oropharyngeal dysphagia and aspiration risk, continue to monitor -maintain normothermia -CT head on admission notable for right frontal SDH; repeat CT head today notable for same right front SDH unchanged or possibly smaller, stable and without new extension or mass effect -Neurosurgery (Dr. Kumar) consulted, appreciate all recs; no acute surgical intervention at this time, stable for transfer as SHD unchanged on CT head -Neuro (Dr. Katlin Green) consulted, appreciate all recs; SDH noted, concern for possible ischemic MCA distribution infarct given aphasia, continue to monitor -Pending carotid duplex -PT/OT Pulm: -CTAB on exam, satting well on room air -no indication for supplemental O2 at this time -maintain SaO2 > 88% given hx of COPD -aspiration precautions -CXR on admission notable for hyperinflated lungs, prominent pulm vasculature, consistent with hx of COPD Cardio: -RRR on exam, EKG today notable for NSR at 86, normal intervals -Hx of hypercholesterolemia, continue Statin -continue to monitor -avoid AC in setting of new subdural hematoma, SCDs for DVT ppx -Maintain MAP > 65 GI: -pureed food + thin liquid trial as per Speech/Swallow -Protonix for GI ppx Renal: -Cr 0.9 -making clear yellow urine -monitor and replete electrolytes as needed -avoid nephrotoxic drugs as feasible -maintain euvolemia and euglycemia (BG 140-180) Heme: -Hgb 13.4 (was 14.3) -Heme-onc (Dr. Faye) consulted for new intracranial bleed, appreciate any recs -avoid AC in setting of new subdural hematoma, SCDs for DVT ppx ID: -No leukocytosis -mild temp of 100.2 this AM, tylenol 650mg PRN for fever -continue to monitor Dispo: ICU, pending transfer to Med/Surg, pending PT/OT and f/u assessment by Speech/Swallow FEN: pureed food + thin liquid trial, D5 + 1/2 NS at 75cc/hr Access: Peripheral IV Consults: Neuro, Neurosurg, Heme-onc, PT/OT, Speech/Swallow Ppx: Protonix for GI, SCDs for DVT (avoid AC in setting of new SHD) Patient seen, reviewed, and discussed with attending, Dr. Hill. - Date & Time Date: 10/28/16 Time: 11:06 <Mike Hill - Last Filed: 10/28/16 18:16> CCU Objective - Vital Signs / Intake & Output Vital Signs (Last 4 hours): Vital Signs Temp Pulse Resp BP Pulse Ox 10/28/16 17:17 98.1 F 75 19 102/63 95 Intake and Output (Last 8hrs): Intake & Output 10/28/16 10/28/16 10/28/16 06:59 14:59 22:59 Intake Total 900 Output Total 900 Balance 0 Intake: IV 900 Left Wrist 900 Oral 0 Output: Urine 900 Urine, Voided 900 Other: Voiding Method Bedpan Bedpan # Bowel Movements 0 - Medications Active Medications: Active Medications Generic Name Dose Route Start Last Admin Trade Name Freq PRN Reason Stop Dose Admin Atorvastatin Calcium 40 mg 04/22/17 11:15 10/28/16 10:45 Lipitor PO 40 mg DAILY EDDIE Administration Dextrose/Sodium Chloride 1,000 mls @ 75 mls/hr 10/27/16 11:15 10/28/16 02:12 Dextrose 5%/0.45% Ns 1000 Ml IV 75 mls/hr .[id number] EDDIE Administration Ketorolac Tromethamine 30 mg 10/27/16 21:19 10/27/16 21:30 Toradol IVP 10/29/16 21:20 30 mg Q6H PRN Administration Pain, severe (8-10) Ondansetron HCl 4 mg 10/27/16 21:21 10/27/16 21:32 Zofran Inj IVP 4 mg Q4H PRN Administration Nausea/Vomiting Pantoprazole Sodium 40 mg 10/27/16 11:15 10/28/16 10:45 Protonix Inj IVP 40 mg DAILY EDDIE Administration - Patient Studies Lab Studies: Lab Studies 10/28/16 10/28/16 10/28/16 Range/Units 10:57 07:07 05:00 WBC 6.4 (4.5-11.0) 10^3/ul RBC 4.72 (3.5-6.1) 10^6/uL Hgb 13.4 (12.0-16.0) gm/dL Hct 40.0 (36.0-48.0) % MCV 84.7 (80.0-105.0) fL MCH 28.4 (25.0-35.0) pg MCHC 33.5 (31.0-37.0) g/dl RDW 13.1 (11.5-14.5) % Plt Count 249 (120.0-450.0) 10^3/uL MPV 9.8 (7.0-11.0) fl Gran % 61.2 (50.0-68.0) % Lymph % (Auto) 24.6 (22.0-35.0) % Tripp % (Auto) 12.0 H (1.0-6.0) % Eos % (Auto) 1.6 (1.5-5.0) % Baso % (Auto) 0.6 (0.0-3.0) % Gran # 3.92 (1.4-6.5) Lymph # 1.6 (1.2-3.4) Tripp # 0.8 H (0.1-0.6) Eos # 0.1 (0.0-0.7) Baso # 0.04 (0.0-2.0) K/mm3 Sodium 137 (132-148) mmol/L Potassium 4.4 (3.6-5.0) mmol/L Chloride 101 (95-110) mmol/L Carbon Dioxide 27 (21-33) mmol/L Anion Gap 13 (10-20) BUN 7 (7-21) mg/dL Creatinine 0.9 (0.5-1.4) mg/dL Est GFR ( Amer) > 60 Est GFR (Non-Af Amer) > 60 POC Glucose (mg/dL) 135 H 107 (65-110) mg/dL Random Glucose 108 (70-110) mg/dL Calcium 8.9 (8.4-10.5) mg/dL 10/27/16 10/27/16 Range/Units 21:54 16:22 WBC (4.5-11.0) 10^3/ul RBC (3.5-6.1) 10^6/uL Hgb (12.0-16.0) gm/dL Hct (36.0-48.0) % MCV (80.0-105.0) fL MCH (25.0-35.0) pg MCHC (31.0-37.0) g/dl RDW (11.5-14.5) % Plt Count (120.0-450.0) 10^3/uL MPV (7.0-11.0) fl Gran % (50.0-68.0) % Lymph % (Auto) (22.0-35.0) % Tripp % (Auto) (1.0-6.0) % Eos % (Auto) (1.5-5.0) % Baso % (Auto) (0.0-3.0) % Gran # (1.4-6.5) Lymph # (1.2-3.4) Tripp # (0.1-0.6) Eos # (0.0-0.7) Baso # (0.0-2.0) K/mm3 Sodium (132-148) mmol/L Potassium (3.6-5.0) mmol/L Chloride (95-110) mmol/L Carbon Dioxide (21-33) mmol/L Anion Gap (10-20) BUN (7-21) mg/dL Creatinine (0.5-1.4) mg/dL Est GFR ( Amer) Est GFR (Non-Af Amer) POC Glucose (mg/dL) 124 H 124 H (65-110) mg/dL Random Glucose (70-110) mg/dL Calcium (8.4-10.5) mg/dL Laboratory Results - last 24 hr 10/27/16 10/27/16 10/28/16 16:22 21:54 05:00 WBC 6.4 RBC 4.72 Hgb 13.4 Hct 40.0 MCV 84.7 MCH 28.4 MCHC 33.5 RDW 13.1 Plt Count 249 MPV 9.8 Gran % 61.2 Lymph % (Auto) 24.6 Tripp % (Auto) 12.0 H Eos % (Auto) 1.6 Baso % (Auto) 0.6 Gran # 3.92 Lymph # 1.6 Tripp # 0.8 H Eos # 0.1 Baso # 0.04 Sodium 137 Potassium 4.4 Chloride 101 Carbon Dioxide 27 Anion Gap 13 BUN 7 Creatinine 0.9 Est GFR ( Amer) > 60 Est GFR (Non-Af Amer) > 60 POC Glucose (mg/dL) 124 H 124 H Random Glucose 108 Calcium 8.9 10/28/16 10/28/16 07:07 10:57 WBC RBC Hgb Hct MCV MCH MCHC RDW Plt Count MPV Gran % Lymph % (Auto) Tripp % (Auto) Eos % (Auto) Baso % (Auto) Gran # Lymph # Tripp # Eos # Baso # Sodium Potassium Chloride Carbon Dioxide Anion Gap BUN Creatinine Est GFR ( Amer) Est GFR (Non-Af Amer) POC Glucose (mg/dL) 107 135 H Random Glucose Calcium Critical Care Progress Note - Nutrition Nutrition: Nutrition Category Date Time Status Modified [Dysphagia/Modified Consistency Diet] [DIET] Diets 10/28/16 Lunch Ordered Addendum Addendum: 10/28/16 18:13 patient was seen and examined at bedside shoulder to shoulder with dr. Berger. His note reflects my exam, assessment and plan, except as below. Meds/Labs/ONE reviewed 71 yo female with expressive aphasia and small right SDH. repeated CTH--no expansion of the hematoma. Neurology and neurosurgery input appreciated. No neurosurgical intervention. Manitain euvolemia, euglycemia, normothermia, 02sat more then 90. ok to downgrade to med/surg ccm time 40 min
--- NOTE | 2016-10-28 11:01 | CON ---
DATE: 10/28/2016 A 71-year-old woman brought to the Emergency Room, unable to give history. She had acute onset of co nfusion, difficulty with speech, uncertain of duration, past history of hypertension, past history of craniotomy left for subdural hematoma. She reports to me today that she is better. She is awake, a lert, and oriented. She understands and speaks clearly. She reports having symptoms such as this pr eviously. She had a CT scan of the head, which demonstrates a tiny right frontal subdural hematoma and residual evidence of a left craniotomy for evacuation of subdural. PHYSICAL EXAMINATION: NEUROLOGIC: Exam finds her awake, alert, and oriented. She has no drift. Good strength. No sensor y deficits. Face is symmetric. There is a well-healed craniotomy scar. Pupils are equal. EOMs are full. Tongue is midline. Gag and corneal are present. IMPRESSION: At this point, my impression is unrelated minimal subdural hematoma. Suggest a repeat C AT scan. If there is no significant change, then she would be cleared for transfer to the ICU and co nsider workup for other reasons for this acute mental status change. Paolo Kumar MD cc: [id number] TT: 10/28/2016 11:01:28 Confirmation # [id number] Dictation # [id number] nilda
--- NOTE | 2016-10-28 16:16 | CP.PCM.CON ---
History of Present Illness - History of Present Illness History of Present Illness: Ms. Agrawal is a 71 yo F with PMH of Uterine CA s/p BLSAH and prior stroke, prior subdural hematoma, COPD, and hypercholesterolemia who presented with AMS/expressive aphasia and was found to have a new Subdural hematoma. She was admitted to the ICU for observation pending reassessment of the SDH. Patient's aphasias slightly improved. NS saw patient with no interventioned deemed warranted PMHX: HTN, HLD, recent ICH; hx of Uterine CA s/p BLSAH; catactacts surgery; tonislectomy Allergies: headaches with codeine; othewise NKDA Medications: Reviewed Social Hx reviewed; Review of Systems - Constitutional Constitutional: As Per HPI - Cardiovascular Cardiovascular: absent: As Per HPI, Acrocyanosis, Chest Pain, Chest Pain at Rest , Chest Pain with Activity, Claudication, Diaphoresis, Dyspnea, Dyspnea on Exertion, Edema, Irregular Heart Rhythm, Pain Radiating to Arm/Neck/Jaw, Leg Edema, Leg Ulcers, Lightheadedness, Orthopnea, Palpitations, Paroxysmal Nocturnal Dyspnea, Pedal Edema, Radiating Pain, Rapid Heart Rate, Slow Heart Rate, Syncope, Other - Respiratory Respiratory: absent: As Per HPI, Cough, Dyspnea, Hemoptysis, Dyspnea on Exertion , Wheezing, Snoring, Stridor, Pain on Inspiration, Chest Congestion, Excessive Mucous Production, Change in Mucous Color, Pain with Coughing, Other - Genitourinary Genitourinary: absent: As Per HPI, Change in Urinary Stream, Difficulty Urinating, Dysuria, Flank Pain, Hematuria, Pyuria, Nocturia, Urinary Incontinence, Urinary Frequency, Urinary Hesitance, Urinary Urgency, Voiding Freq/Small Amts, Freq UTI, Hx Renal/Bladder Calculi, Hx /Renal Surgery, Bladder Distension, Other - Neurological Neurological: As Per HPI - Hematologic/Lymphatic Hematologic: absent: As Per HPI, Easy Bleeding, Easy Bruising, Lymphadenopathy, Other Past Patient History - Infectious Disease Hx of Infectious Diseases: None - Past Social History Smoking Status: Unknown If Ever Smoked - CARDIAC Hx Hypercholesterolemia: Yes - PULMONARY Hx Chronic Obstructive Pulmonary Disease (COPD): Yes - NEUROLOGICAL HX Cerebrovascular Accident: Yes (Tia's) - HEENT Hx HEENT Problems: Yes (WEARS RX READING GLASSES) Hx Cataracts: Yes (BILATERAL CATARACT SURGERY) - RENAL Hx Chronic Kidney Disease: No - ENDOCRINE/METABOLIC Hx Endocrine Disorders: No - HEMATOLOGICAL/ONCOLOGICAL Hx Cancer: Yes - INTEGUMENTARY Hx Dermatological Problems: No - MUSCULOSKELETAL/RHEUMATOLOGICAL Hx Musculoskeletal Disorders: Yes (LEFT KNEE TORN MENISCUS) - GASTROINTESTINAL Hx Gastrointestinal Disorders: Yes Hx Gastroesophageal Reflux: Yes - GENITOURINARY/GYNECOLOGICAL Hx Genitourinary Disorders: No - PSYCHIATRIC Hx Psychophysiologic Disorder: No Hx Emotional Abuse: No Hx Physical Abuse: No Hx Substance Use: No - SURGICAL HISTORY Hx Hysterectomy: Yes Other/Comment: TONSILLECTOMY,D&C,BILATERAL CATARACT SURGERY,L KNEE TORN MENISCUS - ANESTHESIA Hx Anesthesia Reactions: No Hx Malignant Hyperthermia: No Meds Allergies/Adverse Reactions: Allergies Allergy/AdvReac Type Severity Reaction Status Date / Time codeine Allergy HEADACHE Verified 10/27/16 09:41 - Medications Medications: Current Medications Atorvastatin Calcium (Lipitor) 40 mg PO DAILY [facility] Last Admin: 10/28/16 10:45 Dose: 40 mg Dextrose/Sodium Chloride (Dextrose 5%/0.45% Ns 1000 Ml) 1,000 mls @ 75 mls/hr IV .[id number] [facility] Last Admin: 10/28/16 02:12 Dose: 75 mls/hr Ketorolac Tromethamine (Toradol) 30 mg IVP Q6H PRN PRN Reason: Pain, severe (8-10) Stop: 10/29/16 21:20 Last Admin: 10/27/16 21:30 Dose: 30 mg Ondansetron HCl (Zofran Inj) 4 mg IVP Q4H PRN PRN Reason: Nausea/Vomiting Last Admin: 10/27/16 21:32 Dose: 4 mg Pantoprazole Sodium (Protonix Inj) 40 mg IVP DAILY [facility] Last Admin: 10/28/16 10:45 Dose: 40 mg Physical Exam - Constitutional Appears: Non-toxic - Eye Exam Eye Exam: EOMI, Normal appearance, PERRL - Respiratory Exam Respiratory Exam: Clear to Auscultation Bilateral, NORMAL BREATHING PATTERN - Cardiovascular Exam Cardiovascular Exam: REGULAR RHYTHM - GI/Abdominal Exam GI & Abdominal Exam: Normal Bowel Sounds, Soft. absent: Tenderness - Extremities Exam Extremities exam: Positive for: normal inspection Results - Vital Signs Recent Vital Signs: Last Vital Signs Temp 98.6 F 10/28/16 12:00 Pulse 80 10/28/16 12:00 Resp 12 10/28/16 12:00 BP 132/68 10/28/16 12:00 Pulse Ox 97 10/28/16 10:24 - Labs Result Diagrams: 10/28/16 05:00 10/28/16 05:00 Labs: Laboratory Results - last 24 hr 10/27/16 10/27/16 10/28/16 16:22 21:54 05:00 WBC 6.4 RBC 4.72 Hgb 13.4 Hct 40.0 MCV 84.7 MCH 28.4 MCHC 33.5 RDW 13.1 Plt Count 249 MPV 9.8 Gran % 61.2 Lymph % (Auto) 24.6 [place] % (Auto) 12.0 H Eos % (Auto) 1.6 Baso % (Auto) 0.6 Gran # 3.92 Lymph # 1.6 [place] # 0.8 H Eos # 0.1 Baso # 0.04 Sodium 137 Potassium 4.4 Chloride 101 Carbon Dioxide 27 Anion Gap 13 BUN 7 Creatinine 0.9 Est GFR ( Amer) > 60 Est GFR (Non-Af Amer) > 60 POC Glucose (mg/dL) 124 H 124 H Random Glucose 108 Calcium 8.9 10/28/16 10/28/16 07:07 10:57 WBC RBC Hgb Hct MCV MCH MCHC RDW Plt Count MPV Gran % Lymph % (Auto) [place] % (Auto) Eos % (Auto) Baso % (Auto) Gran # Lymph # [place] # Eos # Baso # Sodium Potassium Chloride Carbon Dioxide Anion Gap BUN Creatinine Est GFR ( Amer) Est GFR (Non-Af Amer) POC Glucose (mg/dL) 107 135 H Random Glucose Calcium Assessment & Plan - Assessment and Plan (Free Text) Assessment: Assessment: This is a 71 yo F with PMH of Uterine CA s/p BLSAH and prior stroke, prior subdural hematoma, COPD, and hypercholesterolemia who presented with AMS/ expressive aphasia and was found to have a new Subdural hematoma. She was admitted to the ICU for observation. Patient believes that aphasia is improving though on exam she still demonstrates some word finding difficulty. Blood counts are wnl. Will continue to follow. Would transfuse for plt<100 and for hgb <8. Hold all anticoagulation and ASA given bleed. Seht Faye MD [facility]
--- NOTE | 2016-10-28 23:21 | CP.PCM.PN ---
Subjective - Date & Time of Evaluation Date of Evaluation: 10/28/16 Time of Evaluation: 13:00 - Subjective Subjective: admitted with confusion. History of small frontal subdural hematoma. Evaluated by neurology, neurosurgery. repeat CT head no increase in bleed. H/O uterine cancer. No complaints today. transferred out of ICU. Objective - Vital Signs/Intake and Output Vital Signs (last 24 hours): Temp Pulse Resp BP Pulse Ox 98.1 F 75 19 102/63 95 10/28/16 17:17 10/28/16 17:17 10/28/16 17:17 10/28/16 17:17 10/28/16 17:17 - Medications Medications: Current Medications Atorvastatin Calcium (Lipitor) 40 mg PO DAILY [facility] Last Admin: 10/28/16 10:45 Dose: 40 mg Dextrose/Sodium Chloride (Dextrose 5%/0.45% Ns 1000 Ml) 1,000 mls @ 75 mls/hr IV .[id number] [facility] Last Admin: 10/28/16 02:12 Dose: 75 mls/hr Ketorolac Tromethamine (Toradol) 30 mg IVP Q6H PRN PRN Reason: Pain, severe (8-10) Stop: 10/29/16 21:20 Last Admin: 10/27/16 21:30 Dose: 30 mg Ondansetron HCl (Zofran Inj) 4 mg IVP Q4H PRN PRN Reason: Nausea/Vomiting Last Admin: 10/27/16 21:32 Dose: 4 mg Pantoprazole Sodium (Protonix Inj) 40 mg IVP DAILY [facility] Last Admin: 10/28/16 10:45 Dose: 40 mg - Labs Labs: 10/28/16 05:00 10/28/16 05:00 PT 10.6 Seconds (9.9-11.8) 10/27/16 10:19 INR 0.98 (0.93-1.08) 10/27/16 10:19 APTT 24.3 Seconds (23.7-30.8) 10/27/16 10:19 - Head Exam Head Exam: ATRAUMATIC, NORMAL INSPECTION, NORMOCEPHALIC - Eye Exam Pupil Exam: NORMAL ACCOMODATION - ENT Exam ENT Exam: Mucous Membranes Moist, Normal Exam - Neck Exam Neck Exam: Full ROM, Normal Inspection - Respiratory Exam Respiratory Exam: Clear to Ausculation Bilateral, NORMAL BREATHING PATTERN - Cardiovascular Exam Cardiovascular Exam: REGULAR RHYTHM, +S1, +S2 - GI/Abdominal Exam GI & Abdominal Exam: Normal Bowel Sounds - Extremities Exam Extremities Exam: Full ROM, Normal Capillary Refill, Normal Inspection - Back Exam Back Exam: NORMAL INSPECTION - Neurological Exam Neurological Exam: Alert, CN II-XII Intact, Normal Gait, Oriented x3 - Psychiatric Exam Psychiatric exam: Normal Affect, Normal Mood - Skin Skin Exam: Normal Color, Warm Assessment and Plan - Assessment and Plan (Free Text) Assessment: 1. Altered mental status.: resolved. 2. Smal frontal subdural hematoma : no increase, likely old residual. Evaluated by neuro, neuro surgery. cleared for floor. ok to transfer to floor. 3. H/O uterine cancer. No evidence of disease. 4. Blood counts stable. 5. COPD : no issues now.
[2016-10-29] MEDS: Dextrose 5%/0.45% NS 1,000 ML IV SCH (02:31)
[2016-10-29 07:42] LABS: ADD MANUAL DIFF? NO
[2016-10-29 07:45] LABS: BASO # 0.13 K/mm3 (0.0-2.0); BASO % 2.2 % (0.0-3.0); EOS # 0.4 (0.0-0.7); GRAN # 2.74 (1.4-6.5); GRAN % 45.7 % (50.0-68.0); HEMATOCRIT 40.8 % (36.0-48.0); LYMPH % 33.6 % (22.0-35.0); MEAN CELL VOLUME 85.5 fL (80.0-105.0); MEAN CORPUSCULAR HEMOGLOBIN 28.7 pg (25.0-35.0); MEAN CORPUSCULAR HGB CONC 33.6 g/dl (31.0-37.0); MEAN PLATELET VOLUME 9.9 fl (7.0-11.0); MONO # 0.7 (0.1-0.6); MONO % 11.5 % (1.0-6.0); PLATELET COUNT 212 10^3/uL (120.0-450.0); RED CELL DISTRIBUTION WIDTH 13.4 % (11.5-14.5)
[2016-10-29 08:07] LABS: BLOOD UREA NITROGEN 12 mg/dL (7-21); CALCIUM 8.7 mg/dL (8.4-10.5); CARBON DIOXIDE 25 mmol/L (21-33); CHLORIDE 106 mmol/L (95-110); GFR AFRICAN-AMERICAN > 60; GLUCOSE,RANDOM 85 mg/dL (70-110); POTASSIUM 4.1 mmol/L (3.6-5.0); SODIUM 139 mmol/L (132-148)
--- NOTE | 2016-10-29 08:14 | HP ---
ADDENDUM The patient is a 71-year-old who was admitted with aphasia and CT scan showed frontal lobe hematoma. ER doctor, Dr. Holland, contacted Dr. Kumar who is neurosurgeon and was recommended ICU admission and there was no surgical intervention indicated at this point. However, the patient will be admitt ed in ICU and will be closely monitored. I will follow up the patient closely. Yenny gAuillon MD cc: [phone] TT: 10/27/2016 11:34:32 tn
[2016-10-29] MEDS ORDERED: Dextrose 5%/0.45% NS 1,000 ML IV SCH (12:30)
--- NOTE | 2016-10-29 13:20 | PN ---
DATE: 10/29/2016 The patient is a 71-year-old, seen and examined, much more awake, alert, oriented, communicative, abl e to carry on her conversation. Denies any weakness or numbness. At times, has difficulty finding w ords. Totally not confused. Upon admission, CT shows a small frontal subdural hematoma. PHYSICAL EXAMINATION: VITAL SIGNS: She is afebrile, pulse 66, respirations 18, blood pressure 106/59. LUNGS: Bilateral fair airflow, no rhonchi or crackle. HEART: S1, S2 audible, no murmur. ABDOMEN: Soft, nontender, no rebound, no guarding. NEUROLOGIC: The patient is awake and alert, communicative. LABORATORY EXAMINATION: WBCs 6, hemoglobin 13, hematocrit 40, platelets 212. Chemistry: Sodium 139 , potassium 4.1, chloride 106, CO2 25, BUN 12, creatinine 0.9, blood sugar of 85. ASSESSMENT: Status post altered mental status and Broca's aphasia. The patient was having expressiv e dysphasia. PLAN: The patient is getting carotid Doppler and echocardiogram. We will continue to monitor her re spiratory status. She is off of all kind of anticoagulation. We will continue her on statins, Sean nix and Zofran as needed. We can cut down her IV fluids since she started to tolerate oral feeding. Yenny Aguillon MD cc: [phone] TT: 10/29/2016 13:19:54 Confirmation # [id number] Dictation # [id number] en
--- NOTE | 2016-10-29 18:27 | US ---
PROCEDURE: Bilateral carotid artery duplex ultrasound HISTORY: Carotid stenosis CVA PHYSICIAN(S): Arnav Barksdale MD. TECHNIQUE: Duplex sonography and color-flow Doppler were used to evaluate the carotid bifurcations and limited segments of the vertebral arteries bilaterally. FINDINGS: There is mild smooth hypoechoic plaque noted at the carotid bifurcations bilaterally. The peak systolic velocity in the proximal right internal carotid artery is 67 cm/sec. This corresponds to a 20 to 39% proximal right ICA stenosis. Normal systolic velocities are noted in the proximal right external carotid artery. There is antegrade flow in the right vertebral artery. The peak systolic velocity in the proximal left internal carotid artery is 60 cm/sec. This corresponds to a 20 to 39% proximal left ICA stenosis. Normal systolic velocities are noted in the proximal left external carotid artery. There is antegrade flow in the left vertebral artery. IMPRESSION: 1. Bilateral 20-39% proximal ICA stenoses. 2. Antegrade flow in both vertebral arteries.
--- NOTE | 2016-10-29 18:39 | CARD ---
APPROVED REPORT EXAM: Two-dimensional and M-mode echocardiogram with Doppler and color Doppler. INDICATION STROKE 2D DIMENSIONS Left Atrium (2D)3.5 (1.6-4.0cm)IVSd1.2 (0.7-1.1cm) LVDd3.8 (3.9-5.9cm)PWd1.1 (0.7-1.1cm) LVDs2.6 (2.5-4.0cm)FS (%) 32.0 % LVEF (%)60.8 (>50%) M-Mode DIMENSIONS Aortic Root3.00 (2.2-3.7cm)Aortic Cusp Exc.1.80 (1.5-2.0cm) Aortic Valve AoV Peak Cbhmalmh042.0cm/sAoV VTI29.6cmAO Peak GR.7mmHg LVOT Peak Gkzfdzav856.0cm/sLVOT VTI24.50cmAO Mean GR.4mmHg Mitral Valve MV E Rxjyasaa47.1cm/sMV A Qinwdptt05.2cm/sE/A ratio1.1 TDI Lateral E' Peak V9.65cm/sMedial E' Peak V8.48cm/sE/Lateral E'7.0 E/Medial E'7.9 Pulmonary Valve PV Peak Pgibuxbo17.1cm/sPV Peak Grad.2mmHg Tricuspid Valve TR Peak Fcspewjc194if/sRAP [id number] Peak Gr.27mmHg [id number] LEFT VENTRICLE The left ventricle is normal size. There is borderline to mild concentric left ventricular hypertrophy. The left ventricular function is normal.EF-60-65% There is normal LV segmental wall motion. Transmitral Doppler flow pattern is Grade III-reversible restrictive diastolic dysfunction. No left ventricle thrombus noted on this study. There is no ventricular septal defect visualized. There is no left ventricular aneurysm. There is no mass noted in the left ventricle. RIGHT VENTRICLE The right ventricle is normal size. There is normal right ventricular wall thickness. The right ventricular systolic function is normal. ATRIA The left atrium size is normal. The right atrium size is normal. The interatrial septum is intact with no evidence for an atrial septal defect. AORTIC VALVE The aortic valve is thickened but opens well. No aortic regurgitation is present. There is no aortic valvular stenosis. There is no aortic valvular vegetation. MITRAL VALVE The mitral valve is thickened but opens well. Mitral regurgitation is mild. There is no mitral valve stenosis. There is no evidence of mitral valve prolapse. TRICUSPID VALVE The tricuspid valve leaflets are thickened , but open well. There is mild tricuspid regurgitation.RVSP-37 mmof hg. There is no tricuspid valve stenosis. There is no tricuspid valve prolapse or vegetation. PULMONIC VALVE The pulmonary valve is normal in structure. There is no pulmonic valvular regurgitation. There is no pulmonic valvular stenosis. GREAT VESSELS The ascending aorta is normal in size. The pulmonary artery is normal. The IVC is normal in size and collapses >50% with inspiration. PERICARDIAL EFFUSION There is no pleural effusion. There is no pericardial effusion. <Conclusion> The left ventricle is normal size. There is borderline to mild concentric left ventricular hypertrophy. The left ventricular function is normal.EF-60-65% Mitral regurgitation is mild. There is mild tricuspid regurgitation.RVSP-37 mmof hg.
[2016-10-30 07:47] LABS: ADD MANUAL DIFF? NO
[2016-10-30 07:54] LABS: BASO % 1.8 % (0.0-3.0); EOS # 0.3 (0.0-0.7); EOS % 6.1 % (1.5-5.0); GRAN # 2.84 (1.4-6.5); GRAN % 50.8 % (50.0-68.0); HEMATOCRIT 38.2 % (36.0-48.0); LYMPH # 1.6 (1.2-3.4); LYMPH % 28.8 % (22.0-35.0); MEAN CELL VOLUME 85.5 fL (80.0-105.0); MEAN CORPUSCULAR HEMOGLOBIN 28.2 pg (25.0-35.0); MEAN PLATELET VOLUME 9.7 fl (7.0-11.0); MONO # 0.7 (0.1-0.6); MONO % 12.5 % (1.0-6.0); PLATELET COUNT 206 10^3/uL (120.0-450.0); RED CELL DISTRIBUTION WIDTH 13.4 % (11.5-14.5); WHITE BLOOD COUNT 5.6 10^3/ul (4.5-11.0)
[2016-10-30 08:21] LABS: BLOOD UREA NITROGEN 14 mg/dL (7-21); CALCIUM 8.7 mg/dL (8.4-10.5); CARBON DIOXIDE 24 mmol/L (21-33); CHLORIDE 105 mmol/L (95-110); GFR AFRICAN-AMERICAN > 60; GLUCOSE,RANDOM 90 mg/dL (70-110); SODIUM 139 mmol/L (132-148)
[2016-10-30 10:09] VITALS: BP 150/61; PULSE 70; RESP 18; TEMP 97.9; O2SAT 96
--- NOTE | 2016-10-30 19:30 | DS ---
The patient is a 71-year-old, seen and examined, sitting in chair, reading newspaper, feeling complet neena alright. Able to tolerate, able to walk around. No focal deficit. PHYSICAL EXAMINATION: VITAL SIGNS: She is afebrile, pulse 70, respirations 18, blood pressure 150/61. LUNGS: Bilateral fair airflow, no rhonchi or crackles. HEART: S1, S2 audible. ABDOMEN: Soft, nontender. No rebound, no guarding. NEUROLOGIC: She is awake and alert, communicative, ambulatory. No focal sensory or motor deficits. LABORATORY EXAMINATION: WBC is 5.6, hemoglobin 12.6, hematocrit , platelet of 206. Chemistry: Sodium 139, potassium 4.0, chloride 105, CO2 24, BUN 14, creatinine 0.9, blood sugar of 90. An echo cardiogram that was done shows left ventricle normal in size, concentric LVH, left ventricular functi on is normal with an ejection fraction of 60% to 65%, mild mitral, tricuspid regurgitation. ASSESSMENT AND PLAN: 1. Mild right frontal subdural hematoma, 3.1 x 0.5 cm. That is spontaneous intracranial bleed with no apparent pathology. The patient states she takes aspirin full dose 325 daily. 2. Status post CT angiography. 3. Hypertension. 4. Hyperlipidemia. 5. History of endometrial fallopian tube carcinoma. PLAN: The patient is being discharged home today. She is advised to stop her aspirin and she will c ontinue her Spiriva, stool softener, Nexium, and Lipitor. Her family member spoke to Dr. Faye and arrangement will be made to see a neurologist in [facility]. Yenny Aguillon MD cc: [phone] TT: 10/30/2016 19:29:32 brent
--- NOTE | 2016-11-01 00:05 | PN ---
DATE: 10/30/2016 HISTORY OF PRESENT ILLNESS: This is a 71-year-old white female who was admitted to the hospital with what appeared to be a TIA. CAT scan showing subdural hematoma, mildly disoriented and confused, has improved symptomatically over the last few days. The patient is seen sitting in the chair, reading n ewspaper and feeling completely alright, able to tolerate food and able to walk around without any si gnificant focal deficits. PHYSICAL EXAMINATION: VITAL SIGNS: Stable. T-max is 98.4, pulse is 70, respirations 18, blood pressure is 150/61. LUNGS: Reveals to be clear to percussion and auscultation. HEART: Reveals S1 and S2 to be normal. No gallop or murmur is heard. ABDOMEN: Soft, nontender. Bowel sounds are present. NEUROLOGIC: Reveals higher functions to be normal. The patient is awake and alert, communicative, a mbulatory without any focalizing findings. LABORATORY DATA: White count of 5.6, hemoglobin of 12.6, hematocrit 36, platelet count 206. Head Orthopedic Team Physician elvia reveal a sodium of 139, K of 4, chloride 101, CO2 of 24, BUN of 14, creatinine 0.9, blood sugar of 90. The patient had an echocardiogram done as a part of workup, which was a normal right ventricl e with concentric left ventricular hypertrophy and with mild mitral and tricuspid regurgitation. ASSESSMENT NOTES AND PLAN: The patient has a history of endometrial and fallopian tube carcinoma sta tus post resection 2 years ago, continues to be in remission. The patient had a recent PET/CT scan, which showed some uptake in the mediastinum, which we thought was inflammatory or neoplastic and we a re going to be following up with a repeat CAT scan in December. In the meantime, the reason for these 3 episodes where she has had central nervous system events with bleed is unclear, what could be the cau se at this point in time. A detailed discussion with the patient's son. I explained to him that it c ould be a contributing factor if there was underlying central nervous system issue such as cerebral a myloidosis that could present with increased spontaneous bleeding. When you take small amounts of as pirin or even nonsteroidals, it increase the bleeding risk by up to 41%. , one may want to make sure we rule out this possibility and I suggested to the patient's son that maybe we ought to get a second opinion as far as the neurologic events of concern at a major institution such as [facility]. If I run into the neurologist, I will ask him to see if we can set up the appointment for the patient through his son. The son says he would be able to take mom wherever she needs to go. In the meantime, from our perspective, I do not think it is cancer related as her cancer is in remission at this time and we have that this could be intracerebral bleeding secondary to amyloidosis. I have discussed my findings in detail with as to how to follow her as an outpatient. For now, we will hold off on any aspirins or any nonsteroidals for the patient. Jyoti Faye MD cc: [id number] TT: 11/01/2016 00:05:14 Confirmation # [id number] Dictation # [id number] ln
== END 2016-10-30 18:41 | disposition home or self-care (01) | DRG 66 ==
LOC: ED 09:38 → ERH 11:09 → CCU 13:25 → 3RNO 10-28 11:21
PROVIDERS: ADMIT Internal Medicine; ATTEND Internal Medicine
PROC: B3051ZZ Plain Radiography of Bilateral Common Carotid Arteries using Low Osmolar Contrast (ICD-10-PCS; principal; 2016-10-25)
PROC: B30 Imaging, Upper Arteries, Plain Radiography (ICD-10-PCS; 2016-10-25)
DX: I62.01 Nontraumatic acute subdural hemorrhage (principal); R47.01 Aphasia; J44.9 Chronic obstructive pulmonary disease, unspecified; I10 Essential (primary) hypertension; E78.5 Hyperlipidemia, unspecified; E78.00 Pure hypercholesterolemia, unspecified; R29.701 NIHSS score 1; Z98.42 Cataract extraction status, left eye; Z98.41 Cataract extraction status, right eye; Z88.5 Allergy status to narcotic agent; Z85.42 Personal history of malignant neoplasm of other parts of uterus; Z79.82 Long term (current) use of aspirin; K21.9 Gastro-esophageal reflux disease without esophagitis; D64.9 Anemia, unspecified